=== PATIENT | female | born 1980 | race Caucasian/White ===

== ENCOUNTER 2018-08-03 18:08 | Inpatient (IN) | payer MEDICAID ==
[2018-08-03 18:33] LABS: ADD MAN DIFF? NO
[2018-08-03 18:35] LABS: WHITE BLOOD COUNT 8.3 10^3/ul (4.8-10.8)
[2018-08-03 18:35] LABS: BASOPHILS % 0.2 % (0.0-2.0); EOSINOPHILS % 0.5 % (0.0-7.0); HEMATOCRIT 34.2 % (37.0-47.0); HEMOGLOBIN 11.4 g/dl (12.0-16.0); LYMPHOCYTES # 1.7 10^3/ul (0.8-2.9); LYMPHOCYTES % 21.1 % (15.0-51.0); MEAN CORPUSCULAR HEMOGLOBIN 30.7 pg (29.0-33.0); MEAN CORPUSCULAR HGB CONC 33.3 g/dl (32.0-37.0); MEAN CORPUSCULAR VOLUME 92.2 fl (82.0-101.0); MEAN PLATELET VOLUME 8.7 fl (7.4-10.4); MONOCYTE # 0.5 10^3/ul (0.3-0.9); MONOCYTES % 5.7 % (0.0-11.0); NEUTROPHIL # 5.9 10^3/ul (1.6-7.5); NEUTROPHILS % 71.8 % (39.0-77.0); PLATELET COUNT 251 10^3/UL (140-415); RED BLOOD COUNT 3.71 10^6/ul (4.20-5.40); RED CELL DISTRIBUTION WIDTH 13.9 % (11.5-14.5)
[2018-08-03 19:07] LABS: ALANINE AMINOTRANSFERASE 27 IU/L (13-69); ALBUMIN 3.5 g/dl (3.3-4.9); ALBUMIN/GLOBULIN RATIO 1.02; ALKALINE PHOSPHATASE 112 IU/L (42-121); ANION GAP 8 (5-13); ASPARTATE AMINO TRANSFERASE 23 IU/L (15-46); BILIRUBIN,INDIRECT 0.6 mg/dl (0-1.1); BILIRUBIN,TOTAL 0.6 mg/dl (0.2-1.3); BLOOD UREA NITROGEN 12 mg/dl (7-20); CALCIUM 9.3 mg/dl (8.4-10.2); CARBON DIOXIDE 22 mmol/L (21-31); CHLORIDE 108 mmol/L (97-110); CREATININE 0.46 mg/dl (0.44-1.00); Estimated GFR > 60 mL/min (>60); GLUCOSE 87 mg/dl (70-220); POTASSIUM 3.8 mmol/L (3.5-5.1); SODIUM 138 mmol/L (135-144); TOTAL PROTEIN 6.9 g/dl (6.1-8.1); URIC ACID 3.4 mg/dl (3.1-7.9)
[2018-08-03 19:48] LABS: ADD UMIC YES; UR AMORPHOUS CRYSTAL MANY /HPF (NONE SEEN); UR ASCORBIC ACID NEGATIVE (NEGATIVE); UR BACTERIA FEW /HPF (NONE SEEN); UR BILIRUBIN (Dip) NEGATIVE (NEGATIVE); UR BLOOD (Dip) NEGATIVE (NEGATIVE); UR CLARITY CLOUDY (CLEAR); UR COLOR YELLOW (YELLOW); UR GLUCOSE (Dip) NEGATIVE (NEGATIVE); UR KETONES (Dip) NEGATIVE (NEGATIVE); UR LEUKOCYTE ESTERASE (Dip) NEGATIVE Leu/ul (NEGATIVE); UR NITRITE (Dip) NEGATIVE (NEGATIVE); UR RBC 2 /HPF (0-5); UR TOTAL PROTEIN (Dip) NEGATIVE (NEGATIVE); UR UROBILINOGEN (Dip) 1+ mg/dL (NEGATIVE); UR WBC 11 /HPF (0-5)
[2018-08-03] MEDS: LACTATED RINGER'S 1,000 ML IV (21:21)
[2018-08-03] MEDS ORDERED: GLUCOSE GEL 15 GRAM TUBE BUCCAL (21:30)
[2018-08-03] MEDS ORDERED: GLUCOSE GEL 15 GRAM TUBE PO ×2 (21:30)
[2018-08-03] MEDS ORDERED: GLUCAGON 1 MG INJ IM (21:30)
[2018-08-03] MEDS ORDERED: DEXTROSE 50% 50 ML SYRINGE IV ×2 (21:30)
[2018-08-04] MEDS: LACTATED RINGER'S 1,000 ML IV ×4 (02:53→19:22)
[2018-08-04] MEDS ORDERED: ACCU-CHEK XX (06:00)
[2018-08-04] MEDS: ACCU-CHEK XX ×2 (07:30→19:45)
[2018-08-04] MEDS ORDERED: INSULIN ASPART [NOVOLOG] 3 ML PEN SC (07:35)
[2018-08-04] MEDS ORDERED: PRENATAL VITAMIN PO (09:00)
[2018-08-04] MEDS: FERROUS SULFATE (EC) 325 MG TAB PO (09:18)
[2018-08-04] MEDS: PRENATAL VITAMIN PO (09:18)
[2018-08-04 22:13] LABS: COLLECTION PERIOD 24 hrs; VOLUME 3850 ml/24hrs
[2018-08-04 22:18] LABS: SCRET 0.46 mg/dl (0.44-1.00)
[2018-08-04 22:23] LABS: CREATININE CLEARANCE 194.1 mls/min (84.0-162.0); CREATININE,URINE RANDOM 33.39 mg/dl (20-320)
[2018-08-04 22:42] LABS: COLLECTION PERIOD 24 hrs
[2018-08-04 23:18] LABS: 24HR URINE TOTAL PROTEIN 500.5 mg/24hrs (42.0-225.0); VOLUME 3850 mls
== END 2018-08-04 22:48 | disposition home or self-care (01) | DRG 998 ==
LOC: OBT 18:08 → L-D 18:09 → OBT 20:55 → L-D 20:55
DX: O24.12 Pre-existing type 2 diabetes mellitus, in childbirth (principal); E11.9 Type 2 diabetes mellitus without complications; O09.523 Supervision of elderly multigravida, third trimester; Z3A.36 36 weeks gestation of pregnancy; Z37.0 Single live birth
CPT/HCPCS: 76815; 76818; 80053; 81001; 82575; 82962; 84156; 84443; 84560; 85025; 86850; 86900; 86901

== ENCOUNTER 2018-08-18 09:28 | Inpatient (IN) | payer MEDICAID ==
[~2018-08-18 09:28] MED LIST: EPHEDrine 25 MG/5 ML SYG; OXYTOCIN 30 UNITS/LR 500 ML BAG IV; PHENYLephrine (100 MCG/ML) 10ML SYG
[2018-08-18 13:37] LABS: ADD MAN DIFF? NO
[2018-08-18 13:39] LABS: WHITE BLOOD COUNT 7.3 10^3/ul (4.8-10.8)
[2018-08-18 13:39] LABS: BASOPHILS % 0.3 % (0.0-2.0); EOSINOPHILS % 0.1 % (0.0-7.0); HEMATOCRIT 38.2 % (37.0-47.0); HEMOGLOBIN 12.3 g/dl (12.0-16.0); LYMPHOCYTES # 1.8 10^3/ul (0.8-2.9); LYMPHOCYTES % 24.6 % (15.0-51.0); MEAN CORPUSCULAR HEMOGLOBIN 30.4 pg (29.0-33.0); MEAN CORPUSCULAR HGB CONC 32.2 g/dl (32.0-37.0); MEAN CORPUSCULAR VOLUME 94.3 fl (82.0-101.0); MEAN PLATELET VOLUME 9.2 fl (7.4-10.4); MONOCYTE # 0.4 10^3/ul (0.3-0.9); MONOCYTES % 5.1 % (0.0-11.0); NEUTROPHIL # 5.1 10^3/ul (1.6-7.5); NEUTROPHILS % 69.5 % (39.0-77.0); PLATELET COUNT 253 10^3/UL (140-415); RED BLOOD COUNT 4.05 10^6/ul (4.20-5.40); RED CELL DISTRIBUTION WIDTH 13.8 % (11.5-14.5)
[2018-08-18 13:43] LABS: INR 0.85; PROTIME 11.7 Sec (11.9-14.9); PT RATIO 0.9
[2018-08-18 13:44] LABS: PARTIAL THROMBOPLASTIN TIME 25.2 Sec (23.0-35.0)
[2018-08-18] MEDS: LACTATED RINGER'S 1,000 ML IV (13:59)
[2018-08-18] MEDS ORDERED: OXYTOCIN 30 UNITS/LR 500 ML IV ×2 (14:00→23:30)
[2018-08-18] MEDS ORDERED: MISOPROSTOL 200 MCG TAB PR ×2 (14:00→23:30)
[2018-08-18] MEDS ORDERED: METHYLERGONOVINE 0.2 MG INJ IM ×2 (14:00→23:30)
[2018-08-18] MEDS ORDERED: CARBOPROST 250 MCG INJ IM ×2 (14:00→23:30)
[2018-08-18 14:18] LABS: HEPATITIS B SURFACE ANTIGEN NEGATIVE (NEGATIVE)
[2018-08-18] MEDS: METOCLOPRAMIDE 10 MG INJ IV (15:46)
[2018-08-18] MEDS: ONDANSETRON 4 MG INJ IV (15:46)
[2018-08-18] MEDS ORDERED: morphine SULFATE/PF (10 MG/10 ML) INJ (16:48)
[2018-08-18] MEDS ORDERED: FENTAnyl 50 MCG/ML VIAL ×3 (17:22→17:41)
[2018-08-18] MEDS: OXYTOCIN 30 UNITS/LR 500 ML IV ×3 (18:25→23:28)
[2018-08-18] MEDS: CEFAZOLIN 2 GM/50 ML (PMX) 50 ML IVPB (18:26)
[2018-08-18] MEDS: FENTAnyl 50 MCG/ML VIAL IV (18:58)
[2018-08-18 18:59] LABS: RAPID PLASMA REAGIN NONREACTIVE (NR)
[2018-08-18] MEDS ORDERED: NALOXONE (0.4 MG/ML) INJ IV (19:00)
[2018-08-18] MEDS ORDERED: HYDROmorphONE 1 MG/5 ML IV SYRINGE IV ×3 (19:00)
[2018-08-18] MEDS ORDERED: ONDANSETRON 4 MG INJ IV (19:00)
[2018-08-18] MEDS ORDERED: HYDROmorphONE 0.5 MG/0.5 ML SYG IV ×2 (19:00)
[2018-08-18] MEDS ORDERED: FENTAnyl 50 MCG/ML VIAL IV (19:00)
[2018-08-18] MEDS ORDERED: METOCLOPRAMIDE 10 MG INJ IV (19:00)
[2018-08-18] MEDS ORDERED: ALBUTEROL 0.083% (NEB) 2.5 MG/3 ML AMP HHN (19:00)
[2018-08-18] MEDS ORDERED: DIPHENHYDRAMINE 50 MG INJ IV ×2 (19:00)
[2018-08-18] MEDS ORDERED: KETOROLAC 30 MG INJ IV (19:00)
[2018-08-18] MEDS: KETOROLAC 30 MG INJ IV (20:46)
[2018-08-18] MEDS ORDERED: LANOLIN HPA 1 PKT TOP (23:30)
[2018-08-18] MEDS ORDERED: METHYLERGONOVINE 0.2 MG TAB PO (23:30)
[2018-08-19] MEDS: ONDANSETRON 4 MG INJ IV (00:51)
[2018-08-19] MEDS: DEXTROSE 5%-LR 1,000 ML IV ×3 (02:39→15:28)
[2018-08-19 05:05] LABS: ADD MAN DIFF? NO
[2018-08-19 05:08] LABS: WHITE BLOOD COUNT 10.7 10^3/ul (4.8-10.8)
[2018-08-19 05:08] LABS: BASOPHILS % 0.1 % (0.0-2.0); EOSINOPHILS % 0.3 % (0.0-7.0); HEMATOCRIT 30.1 % (37.0-47.0); HEMOGLOBIN 9.9 g/dl (12.0-16.0); LYMPHOCYTES # 1.2 10^3/ul (0.8-2.9); LYMPHOCYTES % 10.9 % (15.0-51.0); MEAN CORPUSCULAR HEMOGLOBIN 30.7 pg (29.0-33.0); MEAN CORPUSCULAR HGB CONC 32.9 g/dl (32.0-37.0); MEAN CORPUSCULAR VOLUME 93.2 fl (82.0-101.0); MONOCYTE # 0.4 10^3/ul (0.3-0.9); MONOCYTES % 3.7 % (0.0-11.0); NEUTROPHILS % 84.6 % (39.0-77.0); PLATELET COUNT 211 10^3/UL (140-415); RED BLOOD COUNT 3.23 10^6/ul (4.20-5.40); RED CELL DISTRIBUTION WIDTH 13.5 % (11.5-14.5)
[2018-08-19] MEDS: KETOROLAC 30 MG INJ IV ×2 (10:47→16:36)
[2018-08-19] MEDS: SENNA/DOCUSATE NA (8.6MG/50MG) TAB PO ×2 (10:48→22:58)
[2018-08-19] MEDS ORDERED: DIPHTH/TET/ACEL PERTUSS (ADULT) 0.5 ML VIAL IM* (11:00)
[2018-08-19] MEDS ORDERED: HYDROCODONE/APAP (5/325) TAB PO (19:00)
[2018-08-19] MEDS: IBUPROFEN 800 MG TAB PO (21:48)
[2018-08-19] MEDS: HYDROCODONE/APAP (5/325) TAB PO (22:36)
[2018-08-20] MEDS: IBUPROFEN 800 MG TAB PO ×3 (05:31→21:45)
[2018-08-20] MEDS: HYDROCODONE/APAP (5/325) TAB PO ×4 (05:31→21:44)
[2018-08-20] MEDS: SENNA/DOCUSATE NA (8.6MG/50MG) TAB PO ×2 (09:23→21:45)
[2018-08-20] MEDS: MAGNESIUM HYDROXIDE 30ML CUP PO (18:10)
[2018-08-21] MEDS: IBUPROFEN 800 MG TAB PO ×2 (05:44→13:36)
[2018-08-21] MEDS: HYDROCODONE/APAP (5/325) TAB PO ×2 (05:44→14:19)
[2018-08-21] MEDS: MEASLES,MUMPS,RUBELLA VACCINE INJ SC* (07:50)
[2018-08-21] MEDS: MAGNESIUM HYDROXIDE 30ML CUP PO (09:18)
[2018-08-21] MEDS: SENNA/DOCUSATE NA (8.6MG/50MG) TAB PO (09:18)
[2018-08-21] MEDS: DIPHTH/TET/ACEL PERTUSS (ADULT) 0.5 ML VIAL IM* (11:12)
[2018-08-21] MEDS: BISACODYL 10 MG SUPP PR (13:36)
== END 2018-08-21 19:05 | disposition home or self-care (01) | DRG 788 ==
LOC: OBT 09:28 → L-D 09:28 → PP1 08-20 16:50 → OBT 11:20 → L-D 11:20 → MS1 23:00
PROVIDERS: Obstetrics & Gynecology
PROC: 10D00Z1 Extraction of Products of Conception, Low, Open Approach (ICD-10-PCS; principal; 2018-08-18 15:00)
DX: O32.2XX0 Maternal care for transverse and oblique lie, not applicable or unspecified (principal); O24.420 Gestational diabetes mellitus in childbirth, diet controlled; O34.13 Maternal care for benign tumor of corpus uteri, third trimester; O34.211 Maternal care for low transverse scar from previous cesarean delivery; D25.1 Intramural leiomyoma of uterus; Z3A.38 38 weeks gestation of pregnancy; Z37.0 Single live birth
CPT/HCPCS: 76815; 76818; 82962; 85025; 85610; 85730; 86592; 86850; 86900; 86901; 87340; 90715; 99464